=== PATIENT | female | born 1980 | race Caucasian/White ===

== ENCOUNTER 2022-12-10 15:41 | Inpatient (IN) ==
[2022-12-10] MEDS ORDERED: ADENOSINE IV SOLN 3 MG/ML 2 ML VIAL IV ONE (16:12)
[2022-12-10] MEDS ORDERED: ADENOSINE IV SOLN 3 MG/ML 2 ML VIAL IV STA ×2 (16:19→16:40)
[2022-12-10] MEDS ORDERED: LORazepam 2 MG/1 ML VIAL IV STA ×2 (16:19→16:31)
[2022-12-10] MEDS ORDERED: SODIUM CHLORIDE 0.9% 1000ML 1,000 ML IV ONE ×2 (16:31→16:33)
[2022-12-10] MEDS ORDERED: dilTIAZem HCl 5 MG/ML 5 ML VIAL IV ONE (16:50)
[2022-12-10] MEDS ORDERED: STAT IV Infusion **Titration per Protocol STA (16:51)
--- NOTE | 2022-12-10 16:53 | Emergency Department Note ---
History of Present Illness General Chief Complaint: Chest Pain Stated Complaint: CHEST PAIN, IRREGULAR HEART BEAT Time Seen by Provider: 12/10/22 16:08 History of Present Illness Provider Complaint: + rapid heart beat and + palpitations Onset (ago): 1 day(s) Duration: + Constant Maximum Pain Intensity: 4 Current Pain Intensity: 0 Context: + occurred during rest Arrhythmia history: + SVT Associated symptoms: no chest pain, no shortness of breath, no syncope, no near- syncope, no nausea, no vomiting, no diaphoresis or no cough Treatments prior to arrival: + vagal maneuvers HPI narrative: Patient reports she has a history of SVT. Patient reports she was diagnosed 9 y ears ago. Patient reports she was diagnosed at [facility] and was told to have an ablation done but she did not because at that time she was . The patient reports she was on a beta-xander but stopped taking them 6 years ago. Patient reports she gets an SVT attack every month but tries vagal maneuvers which usually break the SVT. Home Medications Medication Instructions Recorded Confirmed Type No Known Home Medications 12/10/22 12/10/22 History Allergies Allergy/AdvReac Type Severity Reaction Status Date / Time Penicillins Allergy Mild Rash Unverified 12/10/22 21:51 azithromycin Allergy Rash Unverified 12/10/22 21:51 [id number] Allergy Unknown Unknown Uncoded 12/10/22 21:51 ANESTHESIA Allergy Rash Uncoded 12/10/22 21:55 Past Med/Surg History Medical History No pertinent family history SVT (supraventricular tachycardia) Surgical History No pertinent past surgical history Social History Smoking Status: Never smoker Preferred Language: Albanian Feels Safe at Home: Yes Physical Exam Vital Signs: Vital Signs - 24 hr 12/10/22 15:44 12/10/22 16:18 12/10/22 16:14 Temperature 36.5 C Temperature Source Temporal Artery Sc an Pulse Rate 137 H 217 H Pulse Rate [Apical ] 182 H Pulse Rate from Sp O2 Sensor Respiratory Rate 18 25 H Respiratory Depth Normal Blood Pressure 179/95 H Blood Pressure Ashley n 123 Pulse Oximetry 100 Oxygen Delivery Me thod Room Air Sepsis Recent Feve r Within 48 Hours No Sepsis New/Unexpla ined Change in Men brayden Status No Sepsis Action Take n by Nursing No Action Required 12/10/22 16:16 12/10/22 16:16 12/10/22 16:20 Temperature Temperature Source Pulse Rate 176 H 202 H Pulse Rate [Apical ] Pulse Rate from Sp O2 Sensor Respiratory Rate 12 26 H Respiratory Depth Blood Pressure 148/102 H Blood Pressure Ashley n 117 Pulse Oximetry Oxygen Delivery Me thod Sepsis Recent Feve r Within 48 Hours Sepsis New/Unexpla ined Change in Men brayden Status Sepsis Action Take n by Nursing 12/10/22 16:24 12/10/22 16:24 12/10/22 16:30 Temperature Temperature Source Pulse Rate 208 H 138 H Pulse Rate [Apical ] Pulse Rate from Sp O2 Sensor Respiratory Rate 19 7 L Respiratory Depth Blood Pressure 164/120 H Blood Pressure Ashley n 134 Pulse Oximetry Oxygen Delivery Me thod Sepsis Recent Feve r Within 48 Hours Sepsis New/Unexpla ined Change in Men brayden Status Sepsis Action Take n by Nursing 12/10/22 16:31 12/10/22 16:31 12/10/22 16:36 Temperature Temperature Source Pulse Rate 126 H 116 H Pulse Rate [Apical ] Pulse Rate from Sp O2 Sensor Respiratory Rate 13 15 Respiratory Depth Blood Pressure 192/117 H Blood Pressure Ashley n 142 Pulse Oximetry Oxygen Delivery Me thod Sepsis Recent Feve r Within 48 Hours Sepsis New/Unexpla ined Change in Men brayden Status Sepsis Action Take n by Nursing 12/10/22 16:36 12/10/22 16:40 12/10/22 16:40 Temperature Temperature Source Pulse Rate 175 H Pulse Rate [Apical ] Pulse Rate from Sp O2 Sensor Respiratory Rate 16 Respiratory Depth Blood Pressure 148/109 H 152/122 H Blood Pressure Ashley n 122 132 Pulse Oximetry Oxygen Delivery Me thod Sepsis Recent Feve r Within 48 Hours Sepsis New/Unexpla ined Change in Men brayden Status Sepsis Action Take n by Nursing 12/10/22 16:45 12/10/22 16:45 12/10/22 16:50 Temperature Temperature Source Pulse Rate 184 H Pulse Rate [Apical ] Pulse Rate from Sp O2 Sensor Respiratory Rate 15 Respiratory Depth Blood Pressure 171/118 H 188/136 H Blood Pressure Ashley n 135 153 Pulse Oximetry Oxygen Delivery Me thod Sepsis Recent Feve r Within 48 Hours Sepsis New/Unexpla ined Change in Men brayden Status Sepsis Action Take n by Nursing 12/10/22 16:50 12/10/22 16:55 12/10/22 16:55 Temperature Temperature Source Pulse Rate 189 H 189 H Pulse Rate [Apical ] Pulse Rate from Sp O2 Sensor Respiratory Rate 13 11 L Respiratory Depth Blood Pressure 185/143 H Blood Pressure Ashley n 157 Pulse Oximetry Oxygen Delivery Me thod Sepsis Recent Feve r Within 48 Hours Sepsis New/Unexpla ined Change in Men brayden Status Sepsis Action Take n by Nursing 12/10/22 17:00 12/10/22 17:01 12/10/22 17:01 Temperature Temperature Source Pulse Rate 188 H 195 H Pulse Rate [Apical ] Pulse Rate from Sp O2 Sensor Respiratory Rate 17 16 Respiratory Depth Blood Pressure 191/130 H Blood Pressure Ashley n 150 Pulse Oximetry Oxygen Delivery Me thod Sepsis Recent Feve r Within 48 Hours Sepsis New/Unexpla ined Change in Men brayden Status Sepsis Action Take n by Nursing 12/10/22 17:06 12/10/22 17:06 12/10/22 17:35 Temperature Temperature Source Pulse Rate 193 H Pulse Rate [Apical ] Pulse Rate from Sp O2 Sensor Respiratory Rate 9 L Respiratory Depth Blood Pressure 189/150 H Blood Pressure Ashley n 163 Pulse Oximetry 98 Oxygen Delivery Me thod Room Air Sepsis Recent Feve r Within 48 Hours Sepsis New/Unexpla ined Change in Men brayden Status Sepsis Action Take n by Nursing 12/10/22 17:10 12/10/22 17:10 12/10/22 17:16 Temperature Temperature Source Pulse Rate 125 H 114 H Pulse Rate [Apical ] Pulse Rate from Sp O2 Sensor 132 H 113 H Respiratory Rate 15 16 Respiratory Depth Blood Pressure 188/148 H Blood Pressure Ashley n 161 Pulse Oximetry 98 63 L Oxygen Delivery Me thod Sepsis Recent Feve r Within 48 Hours Sepsis New/Unexpla ined Change in Men brayden Status Sepsis Action Take n by Nursing 12/10/22 17:16 12/10/22 17:20 12/10/22 17:21 Temperature Temperature Source Pulse Rate 124 H Pulse Rate [Apical ] Pulse Rate from Sp O2 Sensor 120 H Respiratory Rate 13 Respiratory Depth Blood Pressure 151/121 H 163/122 H Blood Pressure Ashley n 131 135 Pulse Oximetry 99 Oxygen Delivery Me thod Sepsis Recent Feve r Within 48 Hours Sepsis New/Unexpla ined Change in Men brayden Status Sepsis Action Take n by Nursing 12/10/22 17:21 12/10/22 17:26 12/10/22 17:26 Temperature Temperature Source Pulse Rate 112 H 118 H Pulse Rate [Apical ] Pulse Rate from Sp O2 Sensor 110 H Respiratory Rate 16 14 Respiratory Depth Blood Pressure 148/120 H Blood Pressure Ashley n 129 Pulse Oximetry 98 Oxygen Delivery Me thod Sepsis Recent Feve r Within 48 Hours Sepsis New/Unexpla ined Change in Men brayden Status Sepsis Action Take n by Nursing 12/10/22 17:30 12/10/22 17:30 12/10/22 17:35 Temperature Temperature Source Pulse Rate 106 H Pulse Rate [Apical ] Pulse Rate from Sp O2 Sensor 106 H Respiratory Rate 14 Respiratory Depth Blood Pressure 160/110 H 166/107 H Blood Pressure Ashley n 126 126 Pulse Oximetry 99 Oxygen Delivery Me thod Sepsis Recent Feve r Within 48 Hours Sepsis New/Unexpla ined Change in Men brayden Status Sepsis Action Take n by Nursing 12/10/22 17:35 12/10/22 17:40 12/10/22 17:41 Temperature Temperature Source Pulse Rate 108 H 111 H Pulse Rate [Apical ] Pulse Rate from Sp O2 Sensor 109 H 110 H Respiratory Rate 14 16 Respiratory Depth Blood Pressure 159/105 H Blood Pressure Ashley n 123 Pulse Oximetry 98 98 Oxygen Delivery Me thod Sepsis Recent Feve r Within 48 Hours Sepsis New/Unexpla ined Change in Men brayden Status Sepsis Action Take n by Nursing 12/10/22 17:41 12/10/22 17:45 12/10/22 17:45 Temperature Temperature Source Pulse Rate 113 H 107 H Pulse Rate [Apical ] Pulse Rate from Sp O2 Sensor 114 H 108 H Respiratory Rate 15 19 Respiratory Depth Blood Pressure 177/105 H Blood Pressure Ashley n 129 Pulse Oximetry 96 100 Oxygen Delivery Me thod Sepsis Recent Feve r Within 48 Hours Sepsis New/Unexpla ined Change in Men brayden Status Sepsis Action Take n by Nursing 12/10/22 17:50 12/10/22 17:51 12/10/22 17:51 Temperature Temperature Source Pulse Rate 199 H 197 H Pulse Rate [Apical ] Pulse Rate from Sp O2 Sensor 200 H 195 H Respiratory Rate 15 8 L Respiratory Depth Blood Pressure 165/107 H Blood Pressure Ashley n 126 Pulse Oximetry 98 100 Oxygen Delivery Me thod Sepsis Recent Feve r Within 48 Hours Sepsis New/Unexpla ined Change in Men brayden Status Sepsis Action Take n by Nursing 12/10/22 17:55 12/10/22 17:55 12/10/22 18:00 Temperature Temperature Source Pulse Rate 190 H 125 H Pulse Rate [Apical ] Pulse Rate from Sp O2 Sensor 190 H 124 H Respiratory Rate 14 23 Respiratory Depth Blood Pressure 154/128 H Blood Pressure Ashley n 136 Pulse Oximetry 100 100 Oxygen Delivery Me thod Sepsis Recent Feve r Within 48 Hours Sepsis New/Unexpla ined Change in Men brayden Status Sepsis Action Take n by Nursing 12/10/22 18:10 12/10/22 18:20 12/10/22 18:30 Temperature Temperature Source Pulse Rate 110 H 182 H 157 H Pulse Rate [Apical ] Pulse Rate from Sp O2 Sensor 110 H 180 H Respiratory Rate 19 16 Respiratory Depth Blood Pressure Blood Pressure Ashley n Pulse Oximetry 99 99 Oxygen Delivery Me thod Sepsis Recent Feve r Within 48 Hours Sepsis New/Unexpla ined Change in Men brayden Status Sepsis Action Take n by Nursing 12/10/22 18:22 12/10/22 18:24 12/10/22 18:26 Temperature Temperature Source Pulse Rate 168 H 172 H 186 H Pulse Rate [Apical ] Pulse Rate from Sp O2 Sensor 170 H 173 H 182 H Respiratory Rate 18 15 17 Respiratory Depth Blood Pressure Blood Pressure Ashley n Pulse Oximetry 99 100 98 Oxygen Delivery Me thod Sepsis Recent Feve r Within 48 Hours Sepsis New/Unexpla ined Change in Men brayden Status Sepsis Action Take n by Nursing 12/10/22 18:28 12/10/22 18:30 12/10/22 18:32 Temperature Temperature Source Pulse Rate 176 H 163 H 139 H Pulse Rate [Apical ] Pulse Rate from Sp O2 Sensor 174 H 165 H 139 H Respiratory Rate 14 12 13 Respiratory Depth Blood Pressure Blood Pressure Ashley n Pulse Oximetry 99 99 99 Oxygen Delivery Me thod Sepsis Recent Feve r Within 48 Hours Sepsis New/Unexpla ined Change in Men brayden Status Sepsis Action Take n by Nursing 12/10/22 18:34 12/10/22 18:36 12/10/22 18:36 Temperature Temperature Source Pulse Rate 94 H 92 H Pulse Rate [Apical ] Pulse Rate from Sp O2 Sensor 94 H 92 H Respiratory Rate 13 18 Respiratory Depth Blood Pressure 173/113 H Blood Pressure Ashley n 133 Pulse Oximetry 98 99 Oxygen Delivery Me thod Sepsis Recent Feve r Within 48 Hours Sepsis New/Unexpla ined Change in Men brayden Status Sepsis Action Take n by Nursing 12/10/22 18:41 12/10/22 18:41 12/10/22 18:45 Temperature Temperature Source Pulse Rate 96 H 116 H Pulse Rate [Apical ] Pulse Rate from Sp O2 Sensor 96 H 110 H Respiratory Rate 17 16 Respiratory Depth Blood Pressure 165/108 H Blood Pressure Ashley n 127 Pulse Oximetry 99 98 Oxygen Delivery Me thod Sepsis Recent Feve r Within 48 Hours Sepsis New/Unexpla ined Change in Men brayden Status Sepsis Action Take n by Nursing 12/10/22 19:00 12/10/22 19:06 12/10/22 19:06 Temperature Temperature Source Pulse Rate 101 H 98 H Pulse Rate [Apical ] Pulse Rate from Sp O2 Sensor 100 H Respiratory Rate 15 22 Respiratory Depth Blood Pressure 128/82 Blood Pressure Ashley n 97 Pulse Oximetry 98 98 Oxygen Delivery Me thod Sepsis Recent Feve r Within 48 Hours Sepsis New/Unexpla ined Change in Men brayden Status Sepsis Action Take n by Nursing 12/10/22 19:10 12/10/22 19:10 12/10/22 19:15 Temperature Temperature Source Pulse Rate 97 H 93 H Pulse Rate [Apical ] Pulse Rate from Sp O2 Sensor 93 H Respiratory Rate 14 13 Respiratory Depth Blood Pressure 148/103 H Blood Pressure Ashley n 118 Pulse Oximetry 72 L 99 Oxygen Delivery Me thod Sepsis Recent Feve r Within 48 Hours Sepsis New/Unexpla ined Change in Men brayden Status Sepsis Action Take n by Nursing 12/10/22 19:20 12/10/22 19:20 12/10/22 19:25 Temperature Temperature Source Pulse Rate 93 H Pulse Rate [Apical ] Pulse Rate from Sp O2 Sensor 92 H Respiratory Rate 16 Respiratory Depth Blood Pressure 135/77 129/79 Blood Pressure Ashley n 96 95 Pulse Oximetry 99 Oxygen Delivery Me thod Sepsis Recent Feve r Within 48 Hours Sepsis New/Unexpla ined Change in Men brayden Status Sepsis Action Take n by Nursing 12/10/22 19:25 12/10/22 19:30 12/10/22 19:30 Temperature Temperature Source Pulse Rate 93 H 97 H Pulse Rate [Apical ] Pulse Rate from Sp O2 Sensor 94 H 96 H Respiratory Rate 14 16 Respiratory Depth Blood Pressure 124/82 Blood Pressure Ashley n 96 Pulse Oximetry 99 98 Oxygen Delivery Me thod Sepsis Recent Feve r Within 48 Hours Sepsis New/Unexpla ined Change in Men brayden Status Sepsis Action Take n by Nursing 12/10/22 19:35 12/10/22 19:35 12/10/22 19:41 Temperature Temperature Source Pulse Rate 91 H Pulse Rate [Apical ] Pulse Rate from Sp O2 Sensor 90 Respiratory Rate 20 Respiratory Depth Blood Pressure 122/94 Blood Pressure Ashley n 103 102 Pulse Oximetry 99 Oxygen Delivery Me thod Sepsis Recent Feve r Within 48 Hours Sepsis New/Unexpla ined Change in Men brayden Status Sepsis Action Take n by Nursing 12/10/22 19:41 12/10/22 19:42 12/10/22 19:42 Temperature Temperature Source Pulse Rate 91 H 95 H Pulse Rate [Apical ] Pulse Rate from Sp O2 Sensor 93 H 96 H Respiratory Rate 16 15 Respiratory Depth Blood Pressure 143/86 H Blood Pressure Ashley n 105 Pulse Oximetry 98 99 Oxygen Delivery Me thod Sepsis Recent Feve r Within 48 Hours Sepsis New/Unexpla ined Change in Men brayden Status Sepsis Action Take n by Nursing 12/10/22 19:45 12/10/22 20:00 12/10/22 20:00 Temperature Temperature Source Pulse Rate 98 H 96 H Pulse Rate [Apical ] Pulse Rate from Sp O2 Sensor 97 H 98 H Respiratory Rate 14 15 Respiratory Depth Blood Pressure 142/82 H Blood Pressure Ashley n 102 Pulse Oximetry 98 98 Oxygen Delivery Me thod Sepsis Recent Feve r Within 48 Hours Sepsis New/Unexpla ined Change in Men brayden Status Sepsis Action Take n by Nursing 12/10/22 20:15 12/10/22 21:10 12/10/22 21:15 Temperature Temperature Source Pulse Rate 95 H 90 86 Pulse Rate [Apical ] Pulse Rate from Sp O2 Sensor 93 H 86 Respiratory Rate 20 15 16 Respiratory Depth Blood Pressure Blood Pressure Ashley n Pulse Oximetry 98 98 Oxygen Delivery Me thod Sepsis Recent Feve r Within 48 Hours Sepsis New/Unexpla ined Change in Men brayden Status Sepsis Action Take n by Nursing Physical Exam: Physical Exam HENT: Exam performed. -Head: Normocephalic and atraumatic. CV: Tachycardic rate, regular rhythm, normal heart sounds and intact distal pulses. There is no peripheral edema. Palpable radial pulses bue. PULM/CHEST: Effort normal and breath sounds normal. No respiratory distress. No stridor. She has no wheezes. She has no rales. ABD: The abdomen is soft and obese. SKIN: Skin is warm and dry. She is not diaphoretic. Procedures Free Text Procedures Indication: Persistent SVT Verbal consent was obtained after the risks and benefits were explained, including but not limited to pain, allergic reaction, aspiration, airway obstruction, laryngospasm, infection, hypotension, and cardiorespiratory arrest. At this time, the risks of the procedure are less than the risks of NOT performing the procedure. A time out was taken and the correct patient and procedure identified. Sedation was achieved utilizing Midazolam. The biphasic defibrillator was set to 100 joules of energy and synched. After confirmation of sedation and "all clear" safety check the synchronized shock was delivered. This resulted in successful conversion of the dysrhythmia back into sinus rhythm. See nursing notes for dosages and times. There were no complications and the patient recovered uneventfully from the procedure. Course Course 1608: The patient was evaluated in room B1. A complete history and physical exam was performed Cardiac monitoring: An order was placed for continuous cardiac monitoring. The monitor shows a rate of 230 with SVT rhythm interpreted by me Patient was found to be in SVT. Patient is very hesitant to receive any medications or cardioversions. Patient insisted on trying vagal maneuvers. Vagal maneuvers were tried multiple times but were unsuccessful. Adenosine 6 mg IV push was given to the patient. No change in patient's SVT. Repeat bolus of adenosine 12 mg IV push was given to the patient which broke her SVT and her heart rate went into sinus tachycardia in the 120s. 1715: Patient went back into SVT. Given that adenosine did not break the patient's SVT and she went back into it. The patient did agree to cardioversion after very very long discussion with the patient and at bedside. Cardioversion was completed and the patient went into sinus rhythm with a rate in the 100s. See procedure note. 1805: Patient went back into SVT again. Patient was given Cardizem 25 mg IV push bolus and will be started on Cardizem drip. When the Cardizem bolus was completed the patient went into a sinus tachycardia with a rate in the 100s. I did discuss the patient's case with Dr. Francine Escudero cardiology. Labs are still pending on the patient including electrolytes D-dimer urine drug screen and TSH. Hesitant to give any beta-blockers until the urine drug screen comes back to make sure the patient does not have any cocaine in her system. Dr. Escamilla agrees. He states that if the patient's urine drug screen comes back negative for cocaine that the patient can be given metoprolol 25 mg p.o. twice daily. 1834: Patient went back into SVT again. Cardizem drip was maximized at 15. Patient's urine drug screen came back negative for cocaine. Metoprolol 5 mg IV push was given to the patient which improved the patient's ventricular rate into the 90s into a sinus rhythm. 25 mg of metoprolol p.o. was also given to the patient. TSH D-dimer and other tests are still pending. 2030: Patient remains in a sinus rhythm with a rate in the 80s and 90s while maxed on Cardizem drip. No additional boluses have been necessary. Urine drug screen negative. negative. CBC within normal limits. Troponin negative. TSH within normal limits. There have been several problems with the lab today and the D-dimers keep clotting. We will obtain CTA of her chest. 2149: CTA of the chest shows no pulmonary embolus. Patient remains in sinus rhythm with a rate in the 80s and 90s on Cardizem drip. Patient will be admitted to the [facility] hospitalist team Dr. Aguilera notified. Administered Medications Diltiazem HCl 125 mg/ Dextrose 125 mls @ 5 mls/hr IV .Q24H [facility]; Protocol Stop: 01/09/23 16:59 Last Titration: 12/10/22 18:18 Dose: 15 mg/hr, 15 mls/hr Documented By: SEOKU Co-signed By: CINDA Titration: 12/10/22 18:16 Dose: 10 mg/hr, 10 mls/hr Documented By: SEKOU Co-signed By: CINDA Admin: 12/10/22 17:57 Dose: 5 mg/hr, 5 mls/hr Documented By: HS Co-signed By: CINDA Discontinued Medications Adenosine (Adenosine Iv Soln 3 Mg/Ml 2 Ml Vial) Confirm Administered Dose 6 mg IV .STK-MED ONE Stop: 12/10/22 16:13 Last Admin: 12/10/22 16:26 Dose: 6 mg Documented By: SEKOU Adenosine (Adenosine Iv Soln 3 Mg/Ml 2 Ml Vial) 6 mg IV NOW STA Stop: 12/10/22 16:20 Last Admin: 12/10/22 16:32 Dose: Not Given Documented By: HS Adenosine (Adenosine Iv Soln 3 Mg/Ml 2 Ml Vial) 12 mg IV NOW STA Stop: 12/10/22 16:41 Last Admin: 12/10/22 16:28 Dose: 12 mg Documented By: HS Diltiazem HCl (Diltiazem Hcl 5 Mg/Ml 5 Ml Vial) Confirm Administered Dose 25 mg IV .STK-MED ONE Stop: 12/10/22 16:51 Last Admin: 12/10/22 16:59 Dose: Not Given Documented By: HS Diltiazem HCl (Diltiazem Hcl 5 Mg/Ml 5 Ml Vial) 25 mg IV NOW STA Stop: 12/10/22 16:52 Last Admin: 12/10/22 17:57 Dose: 25 mg Documented By: SEKOU Co-signed By: CINDA Sodium Chloride (Nss 1000ml) 1,000 mls @ 999 mls/hr IV .Q1H1M ONE Stop: 12/10/22 17:31 Last Infusion: 12/10/22 17:47 Dose: 0 mls/hr Documented By: Admin: 12/10/22 16:34 Dose: 999 mls/hr Documented By: SEKOU Sodium Chloride (Nss 1000ml) 1,000 mls @ 999 mls/hr IV .Q1H1M ONE Stop: 12/10/22 17:33 Last Infusion: 12/10/22 17:47 Dose: 0 mls/hr Documented By: Admin: 12/10/22 16:34 Dose: 999 mls/hr Documented By: SEKOU Ioversol (Optiray 320 500ml) 115 ml IV ONCE ONE Stop: 12/10/22 21:10 Last Admin: 12/10/22 21:09 Dose: 115 ml Documented By: BRIAN Lorazepam (Lorazepam 2 Mg/1 Ml Vial) 1 mg IV NOW STA Stop: 12/10/22 16:20 Last Admin: 12/10/22 16:29 Dose: 1 mg Documented By: SEKOU Lorazepam (Lorazepam 2 Mg/1 Ml Vial) 0.5 mg IV NOW STA Stop: 12/10/22 16:32 Last Admin: 12/10/22 16:34 Dose: 0.5 mg Documented By: HS Metoprolol Tartrate (Metoprolol Tartrate 1 Mg/Ml Vial) 5 mg IV NOW STA Stop: 12/10/22 18:26 Last Admin: 12/10/22 18:30 Dose: 5 mg Documented By: HS Metoprolol Tartrate (Metoprolol Tartrate 25 Mg Tab) 25 mg PO NOW STA Stop: 12/10/22 18:26 Last Admin: 12/10/22 18:30 Dose: 25 mg Documented By: HS Midazolam HCl (Midazolam Hcl 1 Mg/Ml 2ml Vial) Confirm Administered Dose 2 mg .ROUTE .STK-MED ONE Stop: 12/10/22 17:04 Last Admin: 12/10/22 17:05 Dose: 2 mg Documented By: HS Miscellaneous (Stat Iv Infusion Titration Per Protocol) 1 each N/A NOW STA Stop: 12/10/22 16:52 Last Admin: 12/10/22 17:09 Dose: Not Given Documented By: HS Ondansetron HCl (Ondansetron Inj 2 Mg/Ml 2 Ml Vial) Confirm Administered Dose 4 mg .ROUTE .STK-MED ONE Stop: 12/10/22 17:01 Last Admin: 12/10/22 17:03 Dose: 4 mg Documented By: HS Medical Decision Making Laboratory Data Attestation: I reviewed the patient's lab results. 12/10/22 16:00 12/10/22 16:00 Lab Results 12/10/22 12/10/22 12/10/22 Range/Units 16:00 16:00 16:00 WBC 8.43 (4.8-10.8) K/ul RBC 4.60 (4.20-5.40) M/uL Hgb 11.6 L (12.0-16.0) g/dl POC Hgb (12.0-16.0) g/dl Hct 36.7 L (37.0-47.0) % POC Hct (37-47) % MCV 79.8 L (80.0-100.0) fL MCH 25.2 (25.0-34.0) pg MCHC 31.6 L (32.0-36.0) g/dL RDW Std Deviation 42.4 (36.4-46.3) fL RDW Coeff of Kirill 14.8 H (11.5-14.5) % Plt Count 346 (130-400) K/uL MPV 12.3 (9.4-12.4) fL Immature Gran % (Auto) 0.2 % Neut % (Auto) 71.2 % Lymph % (Auto) 19.3 % [place] % (Auto) 7.2 % Eos % (Auto) 1.2 % Baso % (Auto) 0.9 % Neut # (Auto) 5.99 (1.40-6.50) K/uL Lymph # (Auto) 1.63 (1.2-3.4) K/uL [place] # (Auto) 0.61 H (0.11-0.59) K/uL Eos # (Auto) 0.10 (0-0.50) K/uL Baso # (Auto) 0.08 (0-0.2) K/uL Immature Gran # (Auto) 0.02 (0.01-0.20) K/uL PT Cancelled INR Cancelled APTT Cancelled PTT Ratio Cancelled D-Dimer Cancelled POC Sodium (135-144) mmol/L Sodium Cancelled POC Potassium (3.3-5.0) mmol/L Potassium Cancelled POC Chloride (101-112) mmol/L Chloride Cancelled Carbon Dioxide Cancelled POC Total CO2 (24-31) mmol/L Anion Gap Cancelled POC Anion Gap (16-25) mmol/L POC BUN (7-18) mg/dl BUN Cancelled Creatinine Cancelled POC Creatinine (0.6-1.3) mg/dl Est Cr Clr Drug Dosing Cancelled Est GFR ( Amer) Cancelled Est GFR (Non-Af Amer) Cancelled BUN/Creatinine Ratio Cancelled Glucose Cancelled POC Glucose (other) (70-99) mg/dl Calcium Cancelled POC Ioniz Calcium Breanne (1.12-1.32) mmol/l Magnesium Cancelled Total Bilirubin Cancelled AST Cancelled ALT Cancelled Alkaline Phosphatase Cancelled Troponin I High Sens 4.4 (0-14) pg/ml Total Protein Cancelled Albumin Cancelled Globulin Cancelled Albumin/Globulin Ratio Cancelled TSH (0.300-4.500) uIu/ml HCG, Quant mIU/ml Urine Color Urine Appearance (Clear) Urine pH (4.5-7.5) Ur Specific [place] (1.000-1.030) Urine Protein (Negative) Urine Glucose (UA) (Negative) Urine Ketones (Negative) Urine Blood (Negative) Urine Nitrite (Negative) Urine Bilirubin (Negative) Urine Urobilinogen (Negative) Ur Leukocyte Esterase (Negative) Urine WBC (Auto) (0-5) /hpf Urine RBC (Auto) (0-4) /hpf U Hyaline Cast (Auto) (0-5) /lpf U Epithel Cells (Auto) (0-5) /lpf Urine Bacteria (Auto) (Negative) Urine Opiates Screen (Neg) Ur Methadone, Qual (Neg) Urine Barbiturates (Neg) Ur Phencyclidine (PCP) (Neg) U Amphetamin/Meth Scrn (Neg) MDMA (Ecstasy) Screen (Neg) U Benzodiazepines Scrn (Neg) Ur Cocaine Metabolite (Neg) U Marijuana (THC) Screen (Neg) 12/10/22 12/10/22 12/10/22 Range/Units 16:00 17:35 17:35 WBC (4.8-10.8) K/ul RBC (4.20-5.40) M/uL Hgb (12.0-16.0) g/dl POC Hgb (12.0-16.0) g/dl Hct (37.0-47.0) % POC Hct (37-47) % MCV (80.0-100.0) fL MCH (25.0-34.0) pg MCHC (32.0-36.0) g/dL RDW Std Deviation (36.4-46.3) fL RDW Coeff of Kirill (11.5-14.5) % Plt Count (130-400) K/uL MPV (9.4-12.4) fL Immature Gran % (Auto) % Neut % (Auto) % Lymph % (Auto) % [place] % (Auto) % Eos % (Auto) % Baso % (Auto) % Neut # (Auto) (1.40-6.50) K/uL Lymph # (Auto) (1.2-3.4) K/uL [place] # (Auto) (0.11-0.59) K/uL Eos # (Auto) (0-0.50) K/uL Baso # (Auto) (0-0.2) K/uL Immature Gran # (Auto) (0.01-0.20) K/uL PT INR APTT PTT Ratio D-Dimer POC Sodium (135-144) mmol/L Sodium POC Potassium (3.3-5.0) mmol/L Potassium POC Chloride (101-112) mmol/L Chloride Carbon Dioxide POC Total CO2 (24-31) mmol/L Anion Gap POC Anion Gap (16-25) mmol/L POC BUN (7-18) mg/dl BUN Creatinine POC Creatinine (0.6-1.3) mg/dl Est Cr Clr Drug Dosing Est GFR ( Amer) Est GFR (Non-Af Amer) BUN/Creatinine Ratio Glucose POC Glucose (other) (70-99) mg/dl Calcium POC Ioniz Calcium Breanne (1.12-1.32) mmol/l Magnesium Total Bilirubin AST ALT Alkaline Phosphatase Troponin I High Sens (0-14) pg/ml Total Protein Albumin Globulin Albumin/Globulin Ratio TSH 2.501 (0.300-4.500) uIu/ml HCG, Quant < 1 mIU/ml Urine Color Yellow Urine Appearance Clear (Clear) Urine pH 7.5 (4.5-7.5) Ur Specific [place] 1.005 (1.000-1.030) Urine Protein Negative (Negative) Urine Glucose (UA) Negative (Negative) Urine Ketones Negative (Negative) Urine Blood Trace H (Negative) Urine Nitrite Negative (Negative) Urine Bilirubin Negative (Negative) Urine Urobilinogen Negative (Negative) Ur Leukocyte Esterase Negative (Negative) Urine WBC (Auto) 0 (0-5) /hpf Urine RBC (Auto) 0-4 (0-4) /hpf U Hyaline Cast (Auto) 0 (0-5) /lpf U Epithel Cells (Auto) 10-20 H (0-5) /lpf Urine Bacteria (Auto) Negative (Negative) Urine Opiates Screen Neg (Neg) Ur Methadone, Qual Neg (Neg) Urine Barbiturates Neg (Neg) Ur Phencyclidine (PCP) Neg (Neg) U Amphetamin/Meth Scrn Neg (Neg) MDMA (Ecstasy) Screen Neg (Neg) U Benzodiazepines Scrn Neg (Neg) Ur Cocaine Metabolite Neg (Neg) U Marijuana (THC) Screen Neg (Neg) 12/10/22 12/10/22 12/10/22 Range/Units 18:04 18:12 19:15 WBC (4.8-10.8) K/ul RBC (4.20-5.40) M/uL Hgb (12.0-16.0) g/dl POC Hgb 12.6 (12.0-16.0) g/dl Hct (37.0-47.0) % POC Hct 37 (37-47) % MCV (80.0-100.0) fL MCH (25.0-34.0) pg MCHC (32.0-36.0) g/dL RDW Std Deviation (36.4-46.3) fL RDW Coeff of Kirill (11.5-14.5) % Plt Count (130-400) K/uL MPV (9.4-12.4) fL Immature Gran % (Auto) % Neut % (Auto) % Lymph % (Auto) % [place] % (Auto) % Eos % (Auto) % Baso % (Auto) % Neut # (Auto) (1.40-6.50) K/uL Lymph # (Auto) (1.2-3.4) K/uL [place] # (Auto) (0.11-0.59) K/uL Eos # (Auto) (0-0.50) K/uL Baso # (Auto) (0-0.2) K/uL Immature Gran # (Auto) (0.01-0.20) K/uL PT Cancelled INR Cancelled APTT Cancelled PTT Ratio Cancelled D-Dimer Cancelled POC Sodium 143 (135-144) mmol/L Sodium 141 POC Potassium 4.8 (3.3-5.0) mmol/L Potassium TNP POC Chloride 107 (101-112) mmol/L Chloride 108 H Carbon Dioxide 26 POC Total CO2 29 (24-31) mmol/L Anion Gap 7 POC Anion Gap 13.0 L (16-25) mmol/L POC BUN 16 (7-18) mg/dl BUN 14 Creatinine 1.00 POC Creatinine 1.1 (0.6-1.3) mg/dl Est Cr Clr Drug Dosing 91.8 Est GFR ( Amer) 81.6 Est GFR (Non-Af Amer) 70.4 BUN/Creatinine Ratio 14.0 Glucose 126 H POC Glucose (other) 129 H (70-99) mg/dl Calcium 8.9 POC Ioniz Calcium [place] 1.08 L (1.12-1.32) mmol/l Magnesium 2.1 Total Bilirubin 0.3 AST TNP ALT 20 Alkaline Phosphatase 55 Troponin I High Sens (0-14) pg/ml Total Protein 7.9 Albumin 4.4 Globulin 3.5 Albumin/Globulin Ratio 1.3 TSH (0.300-4.500) uIu/ml HCG, Quant mIU/ml Urine Color Urine Appearance (Clear) Urine pH (4.5-7.5) Ur Specific [place] (1.000-1.030) Urine Protein (Negative) Urine Glucose (UA) (Negative) Urine Ketones (Negative) Urine Blood (Negative) Urine Nitrite (Negative) Urine Bilirubin (Negative) Urine Urobilinogen (Negative) Ur Leukocyte Esterase (Negative) Urine WBC (Auto) (0-5) /hpf Urine RBC (Auto) (0-4) /hpf U Hyaline Cast (Auto) (0-5) /lpf U Epithel Cells (Auto) (0-5) /lpf Urine Bacteria (Auto) (Negative) Urine Opiates Screen (Neg) Ur Methadone, Qual (Neg) Urine Barbiturates (Neg) Ur Phencyclidine (PCP) (Neg) U Amphetamin/Meth Scrn (Neg) MDMA (Ecstasy) Screen (Neg) U Benzodiazepines Scrn (Neg) Ur Cocaine Metabolite (Neg) U Marijuana (THC) Screen (Neg) Imaging Data Attestation: I personally reviewed and interpreted this imaging study as follows: Radiologist's Impression: PreliminaryFindingsOnly See Final Report For Complete Findings CTACHEST: FINDINGS: LUNGS: There is no focal infiltrate. There is no pleural effusion or pneumothorax. The tracheobronchial tree is patent. HEART: Within normal limits. VASCULATURE:No acute pulmonaryembolism. THYROID: Within normal limits. MEDIASTINUM & LYMPH NODES: There are no pathologicallyenlarged mediastinal, hilar, or axillary lymph nodes. SUPERIOR ABDOMEN: The included portions of the superior abdomen are within normal limits. MUSCULOSKELETAL: Within normal limits. IMPRESSION: No acute pulmonaryembolism. Radiologist: Matthew Blank MD Study ready at 21:14 and initial results transmitted at 21:18 ECG Data Attestation: I personally reviewed and interpreted this ECG as follows: Additional Comments: EKG #1 at 1551: Sinus tachycardia with a rate of 114. ME 170 QRS [address] elevation or ST depression. EKG #2 at 1605: SVT with a rate of 202. QRS [address] elevation or ST depression. EKG #3 at 1629 status post bolus of adenosine 6 mg followed by adenosine bolus 12 mg IV push: Sinus tachycardia with rate 152. QRS 72 QTc 518. EKG #4 at 1633: Sinus tachycardia with a rate of 115. ME 164 QRS [address] elevation or ST depression. No delta waves. EKG #5 at 1634: Sinus rhythm with a rate of 100. ME QRS and QTc intervals are within normal limits. No ST elevation or ST depression. No delta waves. EKG #6 at 1655: SVT with a rate of 177. QRS [address] elevation or ST depression. EKG #7 at 1707 status post cardioversion with 100 J: Sinus tachycardia with a rate of 139. ME 152 QRS [address] elevation or ST depression. No delta waves. EKG #8 at 1717: Sinus tachycardia with rate 116. ME 162 QRS [address] elevation or ST depression. No delta waves. EKG #9 at 1751: SVT with a rate of 196. QRS [address] elevation or ST depression. EKG #10 at 1758 status post Cardizem 25 mg bolus: Sinus tachycardia with a rate of 107. ME 192 QRS [address] elevation or ST depression. No delta w ave. EKG #11 at 1819 on Cardizem drip with a rate of 5 mg/hr: SVT with a rate of 204. QRS [address] elevation or ST depression. EKG #12 at 1829 on Cardizem drip with rate of 15 mg/h: SVT with a rate of 166. QRS [address] elevation or ST depression. EKG #13 at 1833 status post metoprolol 5 mg IV bolus and while on Cardizem drip 15 mg/h: Sinus rhythm with a rate of 91. ME 310 QRS [address] elevation or ST depression. EKG #14 at 1835 while on Cardizem drip 15 mg/h: Sinus rhythm with rate 94. ME 210 QRS [address] elevation or ST depression. MDM Narrative 1608: The patient was evaluated in room B1. A complete history and physical exam was performed Cardiac monitoring: An order was placed for continuous cardiac monitoring. The monitor shows a rate of 230 with SVT rhythm interpreted by me Patient was found to be in SVT. Patient is very hesitant to receive any medications or cardioversions. Patient insisted on trying vagal maneuvers. Vagal maneuvers were tried multiple times but were unsuccessful. Adenosine 6 mg IV push was given to the patient. No change in patient's SVT. Repeat bolus of adenosine 12 mg IV push was given to the patient which broke her SVT and her heart rate went into sinus tachycardia in the 120s. 1715: Patient went back into SVT. Given that adenosine did not break the mackenzie jung's SVT and she went back into it. The patient did agree to cardioversion after very very long discussion with the patient and at bedside. Cardioversion was completed and the patient went into sinus rhythm with a rate in the 100s. See procedure note. 1805: Patient went back into SVT again. Patient was given Cardizem 25 mg IV push bolus and will be started on Cardizem drip. When the Cardizem bolus was completed the patient went into a sinus tachycardia with a rate in the 100s. I did discuss the patient's case with Dr. Francine Escudero cardiology. Labs are still pending on the patient including electrolytes D-dimer urine drug screen and TSH. Hesitant to give any beta-blockers until the urine drug screen comes back to make sure the patient does not have any cocaine in her system. Dr. Escamilla agrees. He states that if the patient's urine drug screen comes back negative for cocaine that the patient can be given metoprolol 25 mg p.o. twice daily. 1835: Patient went back into SVT again. Cardizem drip was maximized at 15. Patient's urine drug screen came back negative for cocaine. Metoprolol 5 mg IV push was given to the patient which improved the patient's ventricular rate into the 90s into a sinus rhythm. 25 mg of metoprolol p.o. was also given to the pat ieanca. TSH D-dimer and other tests are still pending. 2030: Patient remains in a sinus rhythm with a rate in the 80s and 90s while maxed on Cardizem drip. No additional boluses have been necessary. Urine drug screen negative. negative. CBC within normal limits. Troponin negative. TSH within normal limits. There have been several problems with the lab today and the D-dimers keep clotting. We will obtain CTA of her chest. 2149: CTA of the chest shows no pulmonary embolus. Patient remains in sinus rhythm with a rate in the 80s and 90s on Cardizem drip. Patient will be admitt ed to the [facility] team Dr. Aguilera notified. Impression & Plan Sustained SVT Critical Care Time Critical Care Time: Yes Total Critical Care Time: 122 I have personally spent greater than 122 minutes of critical care time in the direct management of this patient. This includes bedside care, interpretation of diagnostic studies, and testing, discussion with consultants, patient, and family members, and other required patient management activities. This 122 minutes is in excess of all separately billable procedures. Discharge Plan Visit Data Chief Complaint: Chest Pain Stated Complaint: CHEST PAIN, IRREGULAR HEART BEAT ED Provider: Guy Astorga Discharge Problem: Sustained SVT Patient Disposition: Admitted As Inpatient Forms Stand Alone Forms: [facility] Referrals Referrals: PCP,NO [Primary Care Provider] -
[2022-12-10] MEDS: dilTIAZem HCl 5 MG/ML 5 ML VIAL IV STA ×2 (16:59→17:57)
[2022-12-10] MEDS: dilTIAZem HCL 125 MG in DEXTROSE 5% 100 ML IV SCH ×2 (16:59→17:57)
[2022-12-10] MEDS ORDERED: ONDANSETRON INJ 2 MG/ML 2 ML VIAL ONE (17:00)
[2022-12-10] MEDS ORDERED: MIDAZOLAM HCL 1 MG/ML 2ML VIAL ONE (17:03)
[2022-12-10 17:07] LABS: Basophils # (auto) 0.08 K/uL (0-0.2); Basophils % (auto) 0.9 %; Eosinophils % (auto) 1.2 %; Hematocrit (blood only) 36.7 % (37.0-47.0); Hemoglobin 11.6 g/dl (12.0-16.0); Immature Granulocytes # (auto) 0.02 K/uL (0.01-0.20); Immature Granulocytes % (auto) 0.2 %; Lymphocytes # (auto) 1.63 K/uL (1.2-3.4); Lymphocytes % (auto) 19.3 %; Mean Corpuscular Hemoglobin 25.2 pg (25.0-34.0); Mean Corpuscular Hgb Conc 31.6 g/dL (32.0-36.0); Mean Corpuscular Volume 79.8 fL (80.0-100.0); Mean Platelet Volume 12.3 fL (9.4-12.4); Monocytes # (auto) 0.61 K/uL (0.11-0.59); Monocytes % (auto) 7.2 %; Neutrophils # (auto) 5.99 K/uL (1.40-6.50); Neutrophils % (auto) 71.2 %; Platelet Count 346 K/uL (130-400); RDW Coefficient of Variation 14.8 % (11.5-14.5); RDW Standard Deviation 42.4 fL (36.4-46.3); White Blood Count 8.43 K/ul (4.8-10.8)
[2022-12-10 17:51] LABS: Appearance Urine Clear (Clear); Bacteria Urine Automated Negative (Negative); Bilirubin Urine Negative (Negative); Blood Urine Trace (Negative); Cast Urine Automated 0 /lpf (0-5); Color Urine Yellow; Glucose Urine UA Negative (Negative); Ketones Urine Negative (Negative); Leukocyte Esterase Urine Negative (Negative); Nitrite Urine Negative (Negative); Protein Urine Negative (Negative); RBC Urine Automated 0-4 /hpf (0-4); Specific Gravity Urine 1.005 (1.000-1.030); Urobilinogen Urine Negative (Negative); WBC Urine Automated 0 /hpf (0-5); pH Urine 7.5 (4.5-7.5)
[2022-12-10 18:24] LABS: Amphetamines+Metham, Urine Neg (Neg); Barbiturates, Urine Neg (Neg); Benzodiazepine, Urine Neg (Neg); Cocaine, Urine Neg (Neg); MDMA (Ecstacy), Urine Neg (Neg); Methadone, Urine Neg (Neg); Opiate, Urine Neg (Neg); Phencyclidine, Urine Neg (Neg)
[2022-12-10] MEDS ORDERED: METOPROLOL TARTRATE 1 MG/ML VIAL IV STA (18:25)
[2022-12-10] MEDS ORDERED: METOPROLOL TARTRATE 25 MG TAB PO STA ×2 (18:25→21:26)
[2022-12-10 18:26] LABS: iSTAT Creatinine 1.1 mg/dl (0.6-1.3); iSTAT Hemoglobin 12.6 g/dl (12.0-16.0); iSTAT Ionized Calcium 1.08 mmol/l (1.12-1.32); iSTAT Potassium 4.8 mmol/L (3.3-5.0)
[2022-12-10 19:07] LABS: Beta HCG Quantitative < 1 mIU/ml
[2022-12-10 19:16] LABS: Thyroid Stimulating Hormone 2.501 uIu/ml (0.300-4.500)
[2022-12-10 19:25] LABS: Alanine Aminotransferase 20 U/L (7-52); Albumin Globulin Ratio 1.3 (0.9-2); Albumin Level 4.4 gm/dl (3.4-5.0); Alkaline Phosphatase 55 U/L (34-104); Anion Gap 7 (3-11); Bilirubin,Total 0.3 mg/dl (0.2-1.0); Blood Urea Nitrogen 14 mg/dl (6-23); Calcium 8.9 mg/dl (8.5-10.1); Carbon Dioxide 26 mmol/L (21-32); Chloride 108 mmol/L (98-107); Creatinine Clr Calc Pharmacy 91.8 ml/min; Est GFR (African American) 81.6 ml/min; Est GFR (Non-African American) 70.4 ml/min; Globulin 3.5 gm/dl (2.5-4.0); Glucose 126 mg/dl (70-99(Fasting)); Magnesium 2.1 mg/dl (1.7-2.4); Sodium 141 mmol/L (136-145); Total Protein 7.9 gm/dl (6.0-8.3)
[2022-12-10] MEDS ORDERED: OPTIRAY 320 500ml IV ONE (21:09)
--- NOTE | 2022-12-10 21:30 | History & Physical Report ---
Date of Service December 10, 2022 Assessment & Plan (1) SVT (supraventricular tachycardia): Plan: Patient currently NSR status post cardioversion and administration of multiple medications at the ER. Troponin elevation secondary to above Hyperglycemia rule out DM PCU Titrate metoprolol Wean off Cardizem drip Follow troponin TTE, Cardiology consult Re: Recurrent SVT (ER provider already in touch with Dr. Escamilla.) NPO after midnight until patient seen by Cardiology in anticipation of EPS procedure. Check hemoglobin A1c DVT prophylaxis. Lovenox subcu Full code Patient requesting updates from providers. Mr. Raza Vu, contact #[phone]. Text document was generated using [employer] voice recognition software. It may contain grammatical or spelling errors. Kindly contact undersigned for clarification of any documentation item in q uestion. History of Present Illness Chief Complaint: SVT Primary Care Provider: NO PCP History obtained from patient, family, and records. Medical history significant for PSVT. Patient has had PSVT for about 10 years. First noted during her second about 10 years ago when she was residing in [place]. Patient only took metoprolol prescription for about 2 weeks owing to concerns regarding potential side effects of the medication during . [employer] Stewardess from [facility] told her it was fine to not take the medication as long as episodes would terminate with vagal maneuvers patient was taught. Monthly frequency of SVT episodes since. Episodes usually precipitated by bending over, stress, dehydration. Successful termination of episodes with vagal maneuvers. Patient noted SVT episode described as palpitations today. Mild chest discomfort, some shortness of breath. Some personal stressors. Denies inordinate caffeine intake. unaware of snoring/sleep apnea. Patient brought to the ER for evaluation. SVT rate noted be 200s. Multiple doses of adenosine, Lopressor followed by Cardizem bolus and infusion administered. Subsequent cardioversion done at the ER. Patient currently comfortable. Medical History as above Surgical History : sections Family History : Lymphoma Personal/Social history : Non-smoker, no EtOH intake, homemaker Allergies Allergy/AdvReac Type Severity Reaction Status Date / Time Penicillins Allergy Mild Rash Unverified 12/10/22 21:51 azithromycin Allergy Rash Unverified 12/10/22 21:51 [id number] Allergy Unknown Unknown Uncoded 12/10/22 21:51 ANESTHESIA Allergy Rash Uncoded 12/10/22 21:55 Home Medications Medication Instructions Recorded Confirmed Type No Known Home Medications 12/10/22 12/10/22 History Past Med/Surg History Medical History No pertinent family history SVT (supraventricular tachycardia) Surgical History No pertinent past surgical history Social History Smoking Status: Never smoker Hx Alcohol Use: No Hx Substance Use: No Preferred Language: Pashto Communication Ability: Effective [employer] Consultant Required: No Beliefs That Will Affect Care: None Current Living Situation: Family Other Information That Helps Us Care for You: No Feels Safe at Home: Yes Safety Concerns: Feels Safe At This Time Assistive Devices: None Review of Systems Review of Systems: As per HPI, all other systems reviewed and negative Physical Exam Physical Exam: GENERAL: Comfortable, pleasant, obese, no respiratory distress SKIN: Normal color, warm HEENT: [place] palpebral conjunctivae, no ptosis, dry buccal mucosa NECK : Supple, short neck, no tenderness CHEST : CTA, minimal chest wall tenderness HEART : RRR, no obvious murmurs ABDOMEN: Some distention, nontender EXTREMITIES : Minimal LE swelling, no LE tenderness, no other conspicuous deformities noted NEUROLOGIC : Coherent, no facial asymmetry, no other gross focality Results & Data Results & Data ([facility]) Vital Signs (Past 12 Hours) Vital Signs Temp Pulse Pulse Resp BP Pulse Ox O2 Del Method 12/10/22 21:15 86 16 98 12/10/22 21:10 90 15 12/10/22 20:15 95 H 20 98 12/10/22 20:00 96 H 15 98 12/10/22 20:00 142/82 H 12/10/22 19:45 98 H 14 98 12/10/22 19:42 143/86 H 12/10/22 19:42 95 H 15 99 12/10/22 19:41 91 H 16 98 12/10/22 19:35 91 H 20 99 12/10/22 19:35 122/94 12/10/22 19:30 97 H 16 98 12/10/22 19:30 124/82 12/10/22 19:25 93 H 14 99 12/10/22 19:25 129/79 12/10/22 19:20 135/77 12/10/22 19:20 93 H 16 99 12/10/22 19:15 93 H 13 99 12/10/22 19:10 148/103 H 12/10/22 19:10 97 H 14 72 L 12/10/22 19:06 98 H 22 98 12/10/22 19:06 128/82 12/10/22 19:00 101 H 15 98 12/10/22 18:45 116 H 16 98 12/10/22 18:41 165/108 H 12/10/22 18:41 96 H 17 99 12/10/22 18:36 92 H 18 99 12/10/22 18:36 173/113 H 12/10/22 18:34 94 H 13 98 12/10/22 18:32 139 H 13 99 12/10/22 18:30 163 H 12 99 12/10/22 18:28 176 H 14 99 12/10/22 18:26 186 H 17 98 12/10/22 18:24 172 H 15 100 12/10/22 18:22 168 H 18 99 12/10/22 18:30 157 H 12/10/22 18:20 182 H 16 99 12/10/22 18:10 110 H 19 99 12/10/22 18:00 125 H 23 100 12/10/22 17:55 154/128 H 12/10/22 17:55 190 H 14 100 12/10/22 17:51 165/107 H 12/10/22 17:51 197 H 8 L 100 12/10/22 17:50 199 H 15 98 12/10/22 17:45 107 H 19 100 12/10/22 17:45 177/105 H 12/10/22 17:41 113 H 15 96 12/10/22 17:41 159/105 H 12/10/22 17:40 111 H 16 98 12/10/22 17:35 108 H 14 98 12/10/22 17:35 166/107 H 12/10/22 17:30 106 H 14 99 12/10/22 17:30 160/110 H 12/10/22 17:26 148/120 H 12/10/22 17:26 118 H 14 12/10/22 17:21 112 H 16 98 12/10/22 17:21 163/122 H 12/10/22 17:20 124 H 13 99 12/10/22 17:16 151/121 H 12/10/22 17:16 114 H 16 63 L 12/10/22 17:10 125 H 15 98 12/10/22 17:10 188/148 H 12/10/22 17:35 98 Room Air 12/10/22 17:06 193 H 9 L 12/10/22 17:06 189/150 H 12/10/22 17:01 191/130 H 12/10/22 17:01 195 H 16 12/10/22 17:00 188 H 17 12/10/22 16:55 185/143 H 12/10/22 16:55 189 H 11 L 12/10/22 16:50 189 H 13 12/10/22 16:50 188/136 H 12/10/22 16:45 171/118 H 12/10/22 16:45 184 H 15 12/10/22 16:40 175 H 16 12/10/22 16:40 152/122 H 12/10/22 16:36 148/109 H 12/10/22 16:36 116 H 15 12/10/22 16:31 192/117 H 12/10/22 16:31 126 H 13 12/10/22 16:30 138 H 7 L 12/10/22 16:24 208 H 19 12/10/22 16:24 164/120 H 12/10/22 16:20 202 H 26 H 12/10/22 16:16 148/102 H 12/10/22 16:16 176 H 12 12/10/22 16:14 217 H 25 H 12/10/22 16:18 182 H 12/10/22 15:44 36.5 C 137 H 18 179/95 H 100 Room Air Laboratory Results Laboratory Results WBC 8.43 K/ul (4.8-10.8) 12/10/22 16:00 RBC 4.60 M/uL (4.20-5.40) 12/10/22 16:00 Hgb 11.6 g/dl (12.0-16.0) L 12/10/22 16:00 POC Hgb 12.6 g/dl (12.0-16.0) 12/10/22 18:12 Hct 36.7 % (37.0-47.0) L 12/10/22 16:00 POC Hct 37 % (37-47) 12/10/22 18:12 MCV 79.8 fL (80.0-100.0) L 12/10/22 16:00 MCH 25.2 pg (25.0-34.0) 12/10/22 16:00 MCHC 31.6 g/dL (32.0-36.0) L 12/10/22 16:00 RDW Std Deviation 42.4 fL (36.4-46.3) 12/10/22 16:00 RDW Coeff of Kirill 14.8 % (11.5-14.5) H 12/10/22 16:00 Plt Count 346 K/uL (130-400) 12/10/22 16:00 MPV 12.3 fL (9.4-12.4) 12/10/22 16:00 Immature Gran % (Auto) 0.2 % 12/10/22 16:00 Neut % (Auto) 71.2 % 12/10/22 16:00 Lymph % (Auto) 19.3 % 12/10/22 16:00 [place] % (Auto) 7.2 % 12/10/22 16:00 Eos % (Auto) 1.2 % 12/10/22 16:00 Baso % (Auto) 0.9 % 12/10/22 16:00 Neut # (Auto) 5.99 K/uL (1.40-6.50) 12/10/22 16:00 Lymph # (Auto) 1.63 K/uL (1.2-3.4) 12/10/22 16:00 [place] # (Auto) 0.61 K/uL (0.11-0.59) H 12/10/22 16:00 Eos # (Auto) 0.10 K/uL (0-0.50) 12/10/22 16:00 Baso # (Auto) 0.08 K/uL (0-0.2) 12/10/22 16:00 Immature Gran # (Auto) 0.02 K/uL (0.01-0.20) 12/10/22 16:00 PT Cancelled 12/10/22 19:15 INR Cancelled 12/10/22 19:15 APTT Cancelled 12/10/22 19:15 PTT Ratio Cancelled 12/10/22 19:15 D-Dimer Cancelled 12/10/22 19:15 POC Sodium 143 mmol/L (135-144) 12/10/22 18:12 Sodium 141 mmol/L (136-145) 12/10/22 18:04 POC Potassium 4.8 mmol/L (3.3-5.0) 12/10/22 18:12 Potassium TNP 12/10/22 18:04 POC Chloride 107 mmol/L (101-112) 12/10/22 18:12 Chloride 108 mmol/L (98-107) H 12/10/22 18:04 Carbon Dioxide 26 mmol/L (21-32) 12/10/22 18:04 POC Total CO2 29 mmol/L (24-31) 12/10/22 18:12 Anion Gap 7 (3-11) 12/10/22 18:04 POC Anion Gap 13.0 mmol/L (16-25) L 12/10/22 18:12 POC BUN 16 mg/dl (7-18) 12/10/22 18:12 BUN 14 mg/dl (6-23) 12/10/22 18:04 Creatinine 1.00 mg/dl (0.6-1.2) 12/10/22 18:04 POC Creatinine 1.1 mg/dl (0.6-1.3) 12/10/22 18:12 Est Cr Clr Drug Dosing 91.8 ml/min 12/10/22 18:04 Est GFR ( Amer) 81.6 ml/min 12/10/22 18:04 Est GFR (Non-Af Amer) 70.4 ml/min 12/10/22 18:04 BUN/Creatinine Ratio 14.0 (10-20) 12/10/22 18:04 Glucose 126 mg/dl (70-99(Fasting)) H 12/10/22 18:04 POC Glucose (other) 129 mg/dl (70-99) H 12/10/22 18:12 Calcium 8.9 mg/dl (8.5-10.1) 12/10/22 18:04 POC Ioniz Calcium Breanne 1.08 mmol/l (1.12-1.32) L 12/10/22 18:12 Magnesium 2.1 mg/dl (1.7-2.4) 12/10/22 18:04 Total Bilirubin 0.3 mg/dl (0.2-1.0) 12/10/22 18:04 AST TNP 12/10/22 18:04 ALT 20 U/L (7-52) 12/10/22 18:04 Alkaline Phosphatase 55 U/L (34-104) 12/10/22 18:04 Troponin I High Sens 4.4 pg/ml (0-14) 12/10/22 16:00 Total Protein 7.9 gm/dl (6.0-8.3) 12/10/22 18:04 Albumin 4.4 gm/dl (3.4-5.0) 12/10/22 18:04 Globulin 3.5 gm/dl (2.5-4.0) 12/10/22 18:04 Albumin/Globulin Ratio 1.3 (0.9-2) 12/10/22 18:04 TSH 2.501 uIu/ml (0.300-4.500) 12/10/22 16:00 HCG, Quant < 1 mIU/ml 12/10/22 16:00 Urine Color Yellow 12/10/22 17:35 Urine Appearance Clear (Clear) 12/10/22 17:35 Urine pH 7.5 (4.5-7.5) 12/10/22 17:35 Ur Specific [place] 1.005 (1.000-1.030) 12/10/22 17:35 Urine Protein Negative (Negative) 12/10/22 17:35 Urine Glucose (UA) Negative (Negative) 12/10/22 17:35 Urine Ketones Negative (Negative) 12/10/22 17:35 Urine Blood Trace (Negative) H 12/10/22 17:35 Urine Nitrite Negative (Negative) 12/10/22 17:35 Urine Bilirubin Negative (Negative) 12/10/22 17:35 Urine Urobilinogen Negative (Negative) 12/10/22 17:35 Ur Leukocyte Esterase Negative (Negative) 12/10/22 17:35 Urine WBC (Auto) 0 /hpf (0-5) 12/10/22 17:35 Urine RBC (Auto) 0-4 /hpf (0-4) 12/10/22 17:35 U Hyaline Cast (Auto) 0 /lpf (0-5) 12/10/22 17:35 U Epithel Cells (Auto) 10-20 /lpf (0-5) H 12/10/22 17:35 Urine Bacteria (Auto) Negative (Negative) 12/10/22 17:35 Urine Opiates Screen Neg (Neg) 12/10/22 17:35 Ur Methadone, Qual Neg (Neg) 12/10/22 17:35 Urine Barbiturates Neg (Neg) 12/10/22 17:35 Ur Phencyclidine (PCP) Neg (Neg) 12/10/22 17:35 U Amphetamin/Meth Scrn Neg (Neg) 12/10/22 17:35 MDMA (Ecstasy) Screen Neg (Neg) 12/10/22 17:35 U Benzodiazepines Scrn Neg (Neg) 12/10/22 17:35 Ur Cocaine Metabolite Neg (Neg) 12/10/22 17:35 U Marijuana (THC) Screen Neg (Neg) 12/10/22 17:[address] chest initial read: No acute pulmonary embolism. EKG as per my interpretation : Rate 200, SVT, normal axis, ST depression lateral leads
[2022-12-10 22:03] LABS: D Dimer 250 ug/L FEU (0-500); Partial Thromboplastin Ratio 0.9; Partial Thromboplastin Time 23.7 Seconds (21.0-31.0); Prothrombin Time 10.8 Seconds (9.0-12.0)
[2022-12-10 22:20] LABS: Potassium 4.1 mmol/L (3.5-5.1); Troponin I High Sensitivity 15.4 pg/ml (0-14)
[2022-12-10] MEDS ORDERED: SODIUM CHLORIDE 0.45 % 1,000 ML IV STA (22:27)
[2022-12-11] MEDS ORDERED: PROMETHAZINE HCL 12.5 MG in SODIUM CHLORIDE 0.9% 50 ML IV PRN (01:00)
[2022-12-11] MEDS ORDERED: traMADol HCL 50 MG TABLET PO PRN (01:00)
[2022-12-11] MEDS ORDERED: ACETAMINOPHEN 325 MG TAB PO PRN (01:00)
[2022-12-11] MEDS ORDERED: LORazepam 2 MG/1 ML VIAL IV PRN (01:00)
[2022-12-11] MEDS ORDERED: MoRPHine SULFATE 4 MG/ML 1 ML CARP\\VIAL IV PRN (01:00)
[2022-12-11 06:52] LABS: Basophils # (auto) 0.06 K/uL (0-0.2); Basophils % (auto) 0.7 %; Eosinophils # (auto) 0.08 K/uL (0-0.50); Hematocrit (blood only) 33.1 % (37.0-47.0); Hemoglobin 10.5 g/dl (12.0-16.0); Immature Granulocytes # (auto) 0.01 K/uL (0.01-0.20); Immature Granulocytes % (auto) 0.1 %; Lymphocytes # (auto) 1.94 K/uL (1.2-3.4); Lymphocytes % (auto) 23.6 %; Mean Corpuscular Hemoglobin 25.4 pg (25.0-34.0); Mean Corpuscular Hgb Conc 31.7 g/dL (32.0-36.0); Monocytes # (auto) 0.63 K/uL (0.11-0.59); Monocytes % (auto) 7.7 %; Neutrophils % (auto) 66.9 %; Platelet Count 315 K/uL (130-400); RDW Standard Deviation 43.7 fL (36.4-46.3); Red Blood Count 4.14 M/uL (4.20-5.40); White Blood Count 8.22 K/ul (4.8-10.8)
[2022-12-11 07:12] LABS: Estimated Average Glucose 111 mg/dl; Hemoglobin A1C 5.5 % (4.5-5.6)
[2022-12-11 07:21] LABS: Anion Gap 8 (3-11); Calcium 8.2 mg/dl (8.5-10.1); Carbon Dioxide 25 mmol/L (21-32); Chloride 105 mmol/L (98-107); Sodium 138 mmol/L (136-145)
[2022-12-11 07:30] LABS: BUN Creatinine Ratio 12.7 (10-20); Blood Urea Nitrogen 13 mg/dl (6-23); Creatinine Clr Calc Pharmacy 89.8 ml/min; Est GFR (African American) 79.7 ml/min; Est GFR (Non-African American) 68.8 ml/min; Glucose 98 mg/dl (70-99(Fasting))
--- NOTE | 2022-12-11 08:22 | Electrocardiogram Report ---
Test Reason : Blood Pressure : / mmHG Vent. Rate : 114 BPM Atrial Rate : 114 BPM P-R Int : 170 ms QRS Dur : 076 ms QT Int : 328 ms P-R-T Axes : 075 084 047 degrees QTc Int : 452 ms Sinus tachycardia Left atrial enlargement Poor R wave progression, consider anterior CA vs. lead placement vs. LVH Abnormal ECG No previous ECGs available Confirmed by Blake Hunter ([id number]) on 12/11/2022 8:22:23 AM Referred By: Confirmed By:Blake Hunter
--- NOTE | 2022-12-11 08:23 | Electrocardiogram Report ---
Test Reason : Blood Pressure : / mmHG Vent. Rate : 202 BPM Atrial Rate : 110 BPM P-R Int : 000 ms QRS Dur : 072 ms QT Int : 220 ms P-R-T Axes : 000 089 -61 degrees QTc Int : [address] depression in multiple leads, may be rate related Abnormal ECG When compared with ECG of 10-DEC-2022 15:51, Vent. rate has increased BY [address] depression in multiple leads now present Confirmed by Blake Hunter ([id number]) on 12/11/2022 8:23:18 AM Referred By: Confirmed By:Blake Hunter
[2022-12-11] MEDS ORDERED: METOPROLOL TARTRATE 50 MG TAB PO SCH (09:00)
[2022-12-11] MEDS ORDERED: ENOXAPARIN INJ 40 MG/0.4 ML SYR SQ SCH (09:00)
--- NOTE | 2022-12-11 09:03 | CT Scan Report ---
CT ANGIOGRAM OF THE CHEST CLINICAL HISTORY: Atypical chest pain. COMPARISON STUDY: No priors TECHNIQUE: Following the IV administration of 115 cc of Optiray 320, CT angiogram of the chest was pe rformed from the upper abdomen to the thoracic inlet utilizing the pulmonary embolus protocol. Images are reviewed in the axial, sagittal, and coronal planes. 3-D MIPS images are created and assessed. I V contrast was administered without complication. A dose lowering technique was utilized adhering to the principles of ALARA. CT DOSE: 594.85 mGy.cm FINDINGS: Thyroid: Imaged portions of the thyroid gland are normal in size and attenuation. Thoracic aorta: The thoracic aorta is normal in caliber and demonstrates standard 3-vessel arch anato my. No dissection is seen. Pulmonary vasculature: The pulmonary trunk is normal in caliber. There are no filling defects identif ied in main, lobar, or segmental pulmonary branches to suggest pulmonary embolus. Heart: The heart is normal in size and without pericardial effusion. Lungs and pleural spaces: A 2 mm left lower lobe pulmonary nodule is seen on image #84. A 3 mm pleura l-based nodule in the right lower lobe best seen on image #125. These are of low suspicion. The lungs and pleural spaces are otherwise clear noting dependent atelectasis. The trachea and central airways are patent. Mediastinum: There is no mediastinal lymphadenopathy. [place]: Clear. Axillae: There is no axillary lymphadenopathy. Upper abdomen: Partially visualized upper abdominal viscera is within normal limits. Skeletal structures: No lytic or blastic bony lesions are seen. IMPRESSION: 1. There is no evidence of pulmonary embolus in the main, lobar, or segmental pulmonary arteries. 2. There is no airspace consolidation or pleural effusion. 3. Additional findings as above. ACT 112: Negative or not required by law. Electronically signed by: Yomi Rasheed M.D. 12/11/2022 9:01 AM
--- NOTE | 2022-12-11 10:34 | Cardiology Consultation ---
Date of Consultation December 11, 2022 Assessment & Plan (1) SVT (supraventricular tachycardia): Plan 42-year-old female mated with paroxysmal supraventricular tachycardia refractory to Valsalva maneuvers. Treated with adenosine x2 and eventually external direct-current cardioversion. Oral beta-xander therapy initiated without recurrent SVT overnight. Continue metoprolol 50 mg twice daily. Discussed referral to electrophysiology to consider ablation on outpatient basis. Patient agreeable. Appropriate use of Valsalva maneuvers reviewed as well as when to return to the ER for further treatment. Instructed to maintain adequate hydration, electrolyte replacement, and avoid excessive caffeine/alcohol intake. All questions answered to patient's satisfaction. I will arrange for outpatient follow-up. Thank you for allow me to participate in the care of your patient. History of Present Illness Reason for Consultation: PSVT Requesting Physician: Dr. Street Attending Physician: Da Bryan MD History of Present Illness 6-year-old female present to the emergency department with palpitations. Reports history of paroxysmal supraventricular tachycardia dating back 9 years during her second . Evaluated by sanding machine operator at [facility] who recommended ablation. Patient has not followed up since that time. Typically experiences paroxysmal supraventricular tachycardia and palpitations on a monthly basis. Symptoms controlled with Valsalva maneuver. Yesterday, 12/10/2022, her symptoms were refractory to Valsalva maneuvers. She came to the ER due to persistent tachycardia. Notes mild lightheadedness wi thout syncope or near syncope. Denies any associated chest discomfort or shortness of breath. Treated in the ER with adenosine x2. She maintained sinus rhythm briefly however converted back to PSVT with a heart rate ranging from 200-220 bpm. Ultimately received an external direct-current cardioversion without sedation. Intravenous Cardizem initiated followed by oral metoprolol. She has remained in sinus rhythm overnight. This morning she is feeling much better. No recurrent dysrhythmias on telemetry. Anxious for discharge. States "I am not a medication person". Prefers to avoid long-term medical therapies if possible. Open to referral to electrophysiology to consider ablation in the future. In general she is an active mother of 3 young children. Denies any chest discomfort or exertional shortness of breath. Stable functional capacity. No prior medical history. Does not take any medications on a regular basis or [id number] supplements. Denies excessive caffeine or alcohol intake. Allergies Allergy/AdvReac Type Severity Reaction Status Date / Time Penicillins Allergy Mild Rash Unverified 12/10/22 21:51 azithromycin Allergy Rash Unverified 12/10/22 21:51 [id number] Allergy Unknown Unknown Uncoded 12/10/22 21:51 ANESTHESIA Allergy Rash Uncoded 12/10/22 21:55 Home Medications Medication Instructions Recorded Confirmed Type No Known Home Medications 12/10/22 12/10/22 History Patient History Medical History No pertinent family history SVT (supraventricular tachycardia) Surgical History No pertinent past surgical history Social History Smoking Status: Never smoker Hx Alcohol Use: No Hx Substance Use: No Preferred Language: Congolese Communication Ability: Effective [facility] Director Required: No Beliefs That Will Affect Care: None Current Living Situation: Family Other Information That Helps Us Care for You: No Feels Safe at Home: Yes Safety Concerns: Feels Safe At This Time Assistive Devices: None Review of Systems Review of Systems: All systems reviewed & are unremarkable except as noted in Subjective Physical Exam Constitutional: well developed and well nourished; no acute distress and not ill appearing Respiratory: normal respiratory effort; no respiratory distress, no labored breathing and no retractions Auscultation: lungs clear to auscultation bilaterally; no crackles, no rales, no rhonchi and no wheezes Cardiovascular: Rate/Rhythm: regular rate and regular rhythm Heart Sounds: normal S1 and normal S2; no murmur Vessels: radial pulses present; no JVD and no carotid bruit Extremities: no pedal edema and no edema Gastrointestinal (Abdomen): Inspection/Auscultation: abdomen normal to inspection and normal bowel sounds; abdomen not distended Percussion/Palpation: abdomen soft; abdomen nontender, no guarding and abdomen not rigid Neurologic: CN's II-XI intact bilaterally and moves all extremities; no focal motor deficits Motor/Sensory: no tremor Psychiatric: A+Ox3, euthymic affect Results & Data ([facility]) Vital Signs (Past 12 Hours) Vital Signs Temp Pulse Pulse Pulse Resp BP Pulse Ox 12/11/22 08:00 36.8 C 99 H 18 105/75 98 12/11/22 03:24 36.8 C 78 17 118/73 99 12/11/22 00:40 78 12/11/22 00:40 12/11/22 00:40 36.7 C 78 16 139/93 95 12/10/22 23:36 77 18 135/103 H 98 Pulse Ox O2 Del Method O2 Del Method 12/11/22 08:00 Room Air 12/11/22 03:24 Room Air 12/11/22 00:40 12/11/22 00:40 95 Room Air 12/11/22 00:40 Room Air 12/10/22 23:36 Room Air
--- NOTE | 2022-12-11 14:45 | Discharge Summary ---
Date of Service December 11, 2022 Admission HPI Per Admitting Provider History obtained from patient, family, and records. Medical history significant for PSVT. Patient has had PSVT for about 10 years. First noted during her second about 10 years ago when she was residing in [place]. Patient only took metoprolol prescription for about 2 weeks owing to concerns regarding potential side effects of the medication during . Faculty Dean from [facility] told her it was fine to not take the medication as long as episodes would terminate with vagal maneuvers patient was taught. Monthly frequency of SVT episodes since. Episodes usually precipitated by bending over, stress, dehydration. Successful termination of episodes with vagal maneuvers. Patient noted SVT episode described as palpitations today. Mild chest discomfort, some shortness of breath. Some personal stressors. Denies inordinate caffeine intake. unaware of snoring/sleep apnea. Patient brought to the ER for evaluation. SVT rate noted be 200s. Multiple doses of adenosine, Lopressor followed by Cardizem bolus and infusion administered. Subsequent cardioversion done at the ER. Patient currently comfortable. Medical History as above Surgical History : sections Family History : Lymphoma Personal/Social history : Non-smoker, no EtOH intake, homemaker Discharge Data Allergies Allergy/AdvReac Type Severity Reaction Status Date / Time Penicillins Allergy Mild Rash Unverified 12/10/22 21:51 azithromycin Allergy Rash Unverified 12/10/22 21:51 [id number] Allergy Unknown Unknown Uncoded 12/10/22 21:51 ANESTHESIA Allergy Rash Uncoded 12/10/22 21:55 Consultations 12/10/22 21:20 ED Decision to Admit Stat 12/11/22 01:00 Consult Cardiology Routine Ordered Studies 12/10/22 20:25 CT angio chest PE protocol Stat Hospital Course (1) SVT (supraventricular tachycardia): Patient currently NSR status post cardioversion and administration of multiple medications at the ER. Troponin elevation secondary to above Hyperglycemia rule out DM PCU Titrate metoprolol Wean off Cardizem drip Follow troponin TTE, Cardiology consult Re: Recurrent SVT (ER provider already in touch with Dr. Escamilla.) NPO after midnight until patient seen by Cardiology in anticipation of EPS procedure. Check hemoglobin A1c DVT prophylaxis. Lovenox subcu Full code Patient requesting updates from providers. Mr. Raza Vu, contact #[phone]. Text document was generated using [employer] voice recognition software. It may contain grammatical or spelling errors. Kindly contact undersigned for clarification of any documentation item in question. Discharge Plan Discharge Items Patient Disposition: Home - Self-Care Reason For Visit: SVT Discharge Diagnosis: SVT (supraventricular tachycardia): Activity: Resume your previous activity Non-emergency contact: Primary Care Provider and Medical Imaging Tech Call non-emergency contact if: you have any medication questions Follow-up/Referrals: PCP,NO [Primary Care Provider] - Diet: Regular Addtl Attending Provider Instructions: Follow up with your cardiology dr. Escamilla to arrange for electrophysiology cardiology evaluation Follow up with your primary care provider within 1 week ( please call to arrange for the appointment) Advised to avoid excessive caffeine/alcohol intake Seek medical attention if your symptoms reoccur Pending Studies at Discharge: No Stand-Alone Forms: My [employer], Smoking Cessation Medications and DC Order Prescriptions: New metoprolol tartrate 50 mg Tablet 50 mg PO BID 30 Days Qty: 60 0RF Discharge Orders: Discharge Order (Routine); Ordered 12/11/22 Ordered By: Da Bryan Admission Data Admit Date/Time: 12/10/22 23:10 Attending Provider: Da Bryan Admit Provider: Emmett Street Primary Care Provider: PCP,NO Other Providers: Emmett Street ; Augustine Escamilla
--- NOTE | 2022-12-11 17:06 | Electrocardiogram Report ---
Test Reason : Blood Pressure : / mmHG Vent. Rate : 115 BPM Atrial Rate : 115 BPM P-R Int : 164 ms QRS Dur : 072 ms QT Int : 324 ms P-R-T Axes : 060 082 055 degrees QTc Int : 448 ms Sinus tachycardia Left atrial enlargement Diffuse Minor Nonspecific ST abnormality Abnormal ECG When compared with ECG of 10-DEC-2022 16:05, Supraventricular tachycardia no longer present Vent. rate has decreased BY 87 BPM Confirmed by Blake Hunter ([id number]) on 12/11/2022 5:06:37 PM Referred By: REFERRED SELF Confirmed By:Blake Hunter
--- NOTE | 2022-12-11 17:07 | Electrocardiogram Report ---
Test Reason : Blood Pressure : / mmHG Vent. Rate : 116 BPM Atrial Rate : 116 BPM P-R Int : 162 ms QRS Dur : 070 ms QT Int : 330 ms P-R-T Axes : 063 085 066 degrees QTc Int : 458 ms Sinus tachycardia Borderline ECG When compared with ECG of 10-DEC-2022 16:55, Vent. rate has decreased BY 61 BPM Supraventricular tachycardia no longer present Confirmed by Blake Hunter ([id number]) on 12/11/2022 5:07:42 PM Referred By: REFERRED SELF Confirmed By:Blake Hunter
--- NOTE | 2022-12-11 17:07 | Electrocardiogram Report ---
Test Reason : Blood Pressure : / mmHG Vent. Rate : 177 BPM Atrial Rate : 144 BPM P-R Int : 000 ms QRS Dur : 084 ms QT Int : 262 ms P-R-T Axes : 000 092 -02 degrees QTc Int : [address] depression in multiple leads Abnormal ECG When compared with ECG of 10-DEC-2022 16:33, Supraventricular tachycardia now present Vent. rate has increased BY 62 BPM Confirmed by Blake Hunter ([id number]) on 12/11/2022 5:07:09 PM Referred By: REFERRED SELF Confirmed By:Blake Hunter
--- NOTE | 2022-12-11 17:08 | Electrocardiogram Report ---
Test Reason : Blood Pressure : / mmHG Vent. Rate : 196 BPM Atrial Rate : 197 BPM P-R Int : 000 ms QRS Dur : 082 ms QT Int : 230 ms P-R-T Axes : 000 091 -27 degrees QTc Int : [address] depression in multiple leads Abnormal ECG When compared with ECG of 10-DEC-2022 17:17, Supraventricular tachycardia no longer present Vent. rate has increased BY 80 BPM Confirmed by Blake Hunter ([id number]) on 12/11/2022 5:08:10 PM Referred By: REFERRED SELF Confirmed By:Blake Hunter
--- NOTE | 2022-12-11 17:08 | Electrocardiogram Report ---
Test Reason : Blood Pressure : / mmHG Vent. Rate : 204 BPM Atrial Rate : 202 BPM P-R Int : 000 ms QRS Dur : 078 ms QT Int : 216 ms P-R-T Axes : 000 092 007 degrees QTc Int : [address] depression in multiple leads Abnormal ECG When compared with ECG of 10-DEC-2022 17:51, No significant change was found Confirmed by Blake Hunter ([id number]) on 12/11/2022 5:08:32 PM Referred By: REFERRED SELF Confirmed By:Blake Hunter
--- NOTE | 2022-12-11 17:09 | Electrocardiogram Report ---
Test Reason : Blood Pressure : / mmHG Vent. Rate : 166 BPM Atrial Rate : 166 BPM P-R Int : 000 ms QRS Dur : 084 ms QT Int : 268 ms P-R-T Axes : 000 089 050 degrees QTc Int : 445 ms Supraventricular tachycardia Nonspecific ST abnormality Abnormal ECG When compared with ECG of 10-DEC-2022 18:19, HR has decreased by 40 bpm Confirmed by Blake Hunter ([id number]) on 12/11/2022 5:09:14 PM Referred By: REFERRED SELF Confirmed By:Blake Hunter
--- NOTE | 2022-12-11 17:09 | Electrocardiogram Report ---
Test Reason : Blood Pressure : / mmHG Vent. Rate : 134 BPM Atrial Rate : 107 BPM P-R Int : 000 ms QRS Dur : 066 ms QT Int : 294 ms P-R-T Axes : 000 085 054 degrees QTc Int : 439 ms Supraventricular tachycardia Nonspecific ST abnormality Abnormal ECG When compared with ECG of 10-DEC-2022 18:29, HR has decreased by 32 bpm Confirmed by Blake Hunter ([id number]) on 12/11/2022 5:09:39 PM Referred By: REFERRED SELF Confirmed By:Blake Hunter
--- NOTE | 2022-12-11 17:10 | Electrocardiogram Report ---
Test Reason : Blood Pressure : / mmHG Vent. Rate : 091 BPM Atrial Rate : 091 BPM P-R Int : 310 ms QRS Dur : 074 ms QT Int : 320 ms P-R-T Axes : 043 076 058 degrees QTc Int : 393 ms Sinus rhythm with 1st degree A-V block Otherwise normal ECG When compared with ECG of 10-DEC-2022 18:32, Supraventricular tachycardia no longer present HR has decreased by 43 bpm Confirmed by Blake Hunter ([id number]) on 12/11/2022 5:10:22 PM Referred By: REFERRED SELF Confirmed By:Blake Hunter
== END 2022-12-11 15:38 | disposition home or self-care (01) | DRG 310 ==
LOC: ED 15:41 → 2E 23:10